=== PATIENT | female | born 1990 | race Caucasian/White ===

== ENCOUNTER 2019-10-21 14:53 | Observation (INO) | payer SELFPAY ==
[2019-10-21] VITALS (39 sets, daily range): BP systolic 99–124; BP diastolic 47–77; PULSE 92–171; RESP 4–35; TEMP 36.4–38.1; O2SAT 91–100
--- NOTE | 2019-10-21 15:00 | DI.RAD_ITS ---
EXAM: XR CHEST 2V PA LATERAL INDICATION: SOB. COMPARISON: ABD FLAT UPRIGHT PA CHEST from 07/12/2013 TECHNIQUE: 2D digital imaging was performed. FINDINGS: Heart size is normal. The lungs are poorly inflated. There is an area of linear atelectasis or scar ring in the right middle lobe. No definite infiltrate is seen. No effusion is present. There is no evidence of pneumothorax. IMPRESSION: Right middle lobe scarring versus atelectasis. Poor pulmonary inflation. DATA REPOSITORY: RADIATION DOSE DELIVERED:
--- NOTE | 2019-10-21 15:09 | ED.GENADUL_ITS ---
Discharge Plan Discharge Details Chief Complaint: SOB Admit Date/Time: 10/21/19 17:39 Admit Provider: Tashi Pinto Attending Provider: Tashi Pinto Primary Care Provider: Bella Jones ED Provider: Angela Mojica Discharge Data Discharge Date/Time-TO BE ENTERED AT DEPARTURE: 10/21/19 18:45 Medical Decision Making <Trina Lira - Last Filed: 10/22/19 15:59> 29-year-old female presents with shortness of breath she reports URI type symptoms for the last week. Does not have a history of asthma. Former smoker states she quit 3 years ago. On initial exam she is tachycardic at 129, and she is unable to speak in full sentences. Lungs to auscultation bilaterally are tight with expiratory wheezes. She also reports some anterior chest pain. Denies any recent long trips, no lower extremity swelling. She has surgical history of hysterectomy. Initial work-up ordered including IV CBC CMP magnesium, EKG, chest x-ray, DuoNeb, and 125 Solu-Medrol. 1527: EKG obtained rate of 118 ND interval is 0 QT/QTc is 304/426 the machine interpretation reports atrial flutter with I and the Dr. Rodriguez disagree with. Appears to be sinus tachycardia no ST depression or elevation no ectopy. 1531: Reevaluation after DuoNeb, increased air movement noted to her left upper and lower lobes there is increased wheezing noted. Her right upper and lower lobes are now clear to auscultation. Patient states that she feels somewhat better. Heart rate up to 150 after neb. Care to be signed out to Ada Mojica MD, discussed patient case and pending D- dimer. Patient c/o nausea. Dr. Mojica verbalizes understanding. ECG Data Prior ECG tracings: not available for review <Angela Mojica MD - Last Filed: 10/21/19 22:57> Yazmin García is a 29-year-old woman with a history of transverse myelitis who presented to the emergency department with cough, shortness of breath, chest tightness signed out to me at time shift change by Trina Lira with d-dimer, reassessment pending. On my assessment, patient is tachycardic 135-165, SBP 120, O2 sat 90 to 92% on room air, patient is well and nontoxic appearing, speaking in full sentences with no apparent respiratory distress. Inspiratory wheeze throughout bilaterally, breath sounds somewhat decreased bilaterally. Patient reports feeling significantly improved after DuoNeb, reports earlier chest pain now resolved. IV fluids just started, patient has received approximately 100 cc. Labs reviewed, anion gap 19, influenza negative, WBC 9.1 unclear etiology of symptoms at this time, concern for viral illness, PE, other. Low suspicion for myocarditis, acute coronary syndrome, early sepsis, however will add troponin, BNP. Given negative chest x-ray, no history of reactive airway disease and unclear etiology of symptoms at this time, plan for CT chest, will continue telemetry, repeat DuoNeb, will monitor and reassess. Patient reports significant improvement in breathing after DuoNeb, reports that she feels essentially at baseline other than feeling generally achy. Denies other symptoms. Troponin negative, BNP within normal. Tachycardia at 150, EKG shows sinus tach, rate variable between 130 and 170, doubt occult atrial flutter. Plan for admission for continued tachycardia of unclear etiology at this time, likely viral respiratory infection, reactive airway disease component, plan for continued evaluation and treatment. Holding antibiotics at this time, patient continues to be very well-appearing without apparent life- threatening bacterial infection. Discussed patient with Dr. Pinto, discussed ICU versus MedSurg telemetry, given patient with blood pressure within normal limits, very well-appearing, no current shortness of breath or respiratory symptoms, lungs clear to auscultation, plan for telemetry at this time. Clinical impression: Shortness of breath, tachycardia Disposition: [facility] inpatient Medical Records Medical records reviewed: Yes I reviewed the patient's medical records. Imaging Data Radiologic Study: Attestation: I personally reviewed and interpreted this imaging study as follows: Radiologist's impression: Exam: XR Chest, 2 Views Exam date and time: 10/21/2019 3:49 PM Age: 29 years old Clinical indication: Other: SOB TECHNIQUE: Imaging protocol: XR of the chest Views: 2 views. COMPARISON: CR ABD FLAT UPRIGHT PA CHEST 07/12/2013 5:12 PM FINDINGS: Lungs: Unremarkable. No consolidation. Pleural space: Unremarkable. No pleural effusion. No pneumothorax. Heart/Mediastinum: Unremarkable. No cardiomegaly. Bones/joints: Unremarkable. IMPRESSION: No acute findings. Exam: CT Angiography Chest With Contrast Exam date and time: 10/21/2019 4:51 PM Age: 29 years old Clinical indication: Shortness of breath; Patient HX: SOB, cough, tachycardia; Additional info: No HX of clots/dvt TECHNIQUE: Imaging protocol: Computed tomographic angiography of the chest with intravenous contrast. 3D rendering: MIP and/or 3D reconstructed images were created by the technologist. Radiation optimization: All CT scans at this facility use at least one of these dose optimization techniques: automated exposure control; mA and/or kV adjustment per patient size (includes targeted exams where dose is matched to clinical indication); or iterative reconstruction. Contrast material: OMNIPAQUE 350; Contrast volume: 80 ml; Contrast route: IV; COMPARISON: CR XR CHEST 2V PA LATERAL 10/21/2019 3:48 PM FINDINGS: Pulmonary arteries: There is no evidence of a pulmonary embolus. Great vessels off aortic arch: There is an aberrant right subclavian artery. Aorta: The aorta is within normal limits. Thyroid: The visualized portions of the thyroid gland are within normal limits. Lungs: The tracheobronchial tree is patent bilaterally. There is an area of focal scarring within the right middle lobe with associated atelectasis. There is slight scarring within the left upper lobe. Pleural space: Unremarkable. No pneumothorax. No pleural effusion. Heart: The heart and pericardium are unremarkable. Gallbladder and bile ducts: The patient is status post cholecystectomy. Lymph nodes: No enlarged lymph nodes. Bones/joints: There are slight degenerative changes of the shoulders. There are degenerative changes of the thoracic spine. Soft tissues: Unremarkable. Other findings: The study is somewhat limited due to bolus timing. The study is somewhat limited due to patient body habitus. The patient's body contacts the CT gantry causing beam hardening artifact. Liver: There is mild fatty infiltration of the liver. IMPRESSION: Limited study as above. Osseous findings as above. No evidence of a pulmonary embolus. Aberrant right subclavian artery. Status post cholecystectomy. Mild fatty infiltration of the liver. Lab Data Lab results reviewed: Yes I reviewed the patient's lab results. Labs: 10/21/19 18:00 Blood Blood Culture - Pending 10/21/19 17:50 Blood Blood Culture - Pending 10/21/19 15:35 Nasopharynx Influenza Types A,B Antigen - Final Laboratory Tests Range/Units 10/21/19 10/21/19 10/21/19 15:25 15:25 15:25 WBC (4.4-10.8) k/cumm 9.10 RBC (4.00-5.20) m/cumm 5.30 H Hgb (12.0-15.5) g/dL 15.5 Hct (36.0-46.0) % 46.3 H MCV (80-95) fL 87.4 MCH (27.0-33.0) pg 29.2 MCHC (32.0-36.0) g/dL 33.5 RDW (11.7-14.6) % 13.3 Plt Count (130-400) x1000/uL 252 MPV (8.0-11.0) fL 11.1 H Immature Gran % % 0.1 Neutrophils % 82.2 Lymphocytes % 8.4 Monocytes % 9.2 Eosinophils % 0.0 Basophils % 0.1 Absolute Neutrophils (1.2-6.7) k/cumm 7.48 H Absolute Lymphocytes (1.2-3.4) k/cumm 0.76 L Absolute Monocytes (0.11-0.7) k/cumm 0.84 H Absolute Eosinophils (0.0-0.7) k/cumm 0.00 Absolute Basophils (0.0-0.2) k/cumm 0.01 ESR D-Dimer (<500) ng/mlFEU 635 H Sodium (136-145) mmol/L 138 Potassium (3.5-5.1) mmol/L 4.1 Chloride (98-107) mmol/L 101 Carbon Dioxide (21.0-32.0) mmol/L 17.5 L Anion Gap (3-11) mmol/L 19.5 H BUN (7-18) mg/dL 8 Creatinine (0.55-1.02) mg/dL 0.70 Estimated GFR/1.73 m2 (mL/min/1.73m2) >= 60.00 Glucose (74-106) mg/dL 90 Calcium (8.5-10.1) mg/dL 9.0 Magnesium (1.8-2.4) mg/dL 2.0 Total Bilirubin (0.2-1.0) mg/dL 0.6 AST (15-37) U/L 75 H ALT (14-59) U/L 108 H Alkaline Phosphatase (46-116) U/L 114 Troponin I (<0.06) ng/Ml NT-Pro-B Natriuret Pep (<300) pg/mL Total Protein (6.4-8.2) g/dL 8.0 Albumin (3.4-5.0) g/dL 4.1 TSH (0.36-3.74) uIU/mL Salicylates (2.8-20.0) mg/dL Range/Units 10/21/19 10/21/19 10/21/19 15:25 15:25 17:50 WBC (4.4-10.8) k/cumm RBC (4.00-5.20) m/cumm Hgb (12.0-15.5) g/dL Hct (36.0-46.0) % MCV (80-95) fL MCH (27.0-33.0) pg MCHC (32.0-36.0) g/dL RDW (11.7-14.6) % Plt Count (130-400) x1000/uL MPV (8.0-11.0) fL Immature Gran % % Neutrophils % Lymphocytes % Monocytes % Eosinophils % Basophils % Absolute Neutrophils (1.2-6.7) k/cumm Absolute Lymphocytes (1.2-3.4) k/cumm Absolute Monocytes (0.11-0.7) k/cumm Absolute Eosinophils (0.0-0.7) k/cumm Absolute Basophils (0.0-0.2) k/cumm ESR D-Dimer (<500) ng/mlFEU Sodium (136-145) mmol/L Potassium (3.5-5.1) mmol/L Chloride (98-107) mmol/L Carbon Dioxide (21.0-32.0) mmol/L Anion Gap (3-11) mmol/L BUN (7-18) mg/dL Creatinine (0.55-1.02) mg/dL Estimated GFR/1.73 m2 (mL/min/1.73m2) Glucose (74-106) mg/dL Calcium (8.5-10.1) mg/dL Magnesium (1.8-2.4) mg/dL Total Bilirubin (0.2-1.0) mg/dL AST (15-37) U/L ALT (14-59) U/L Alkaline Phosphatase (46-116) U/L Troponin I (<0.06) ng/Ml < 0.05 NT-Pro-B Natriuret Pep (<300) pg/mL 143 Total Protein (6.4-8.2) g/dL Albumin (3.4-5.0) g/dL TSH (0.36-3.74) uIU/mL 0.17 L Salicylates (2.8-20.0) mg/dL Range/Units 10/21/19 10/21/19 18:00 18:35 WBC (4.4-10.8) k/cumm RBC (4.00-5.20) m/cumm Hgb (12.0-15.5) g/dL Hct (36.0-46.0) % MCV (80-95) fL MCH (27.0-33.0) pg MCHC (32.0-36.0) g/dL RDW (11.7-14.6) % Plt Count (130-400) x1000/uL MPV (8.0-11.0) fL Immature Gran % % Neutrophils % Lymphocytes % Monocytes % Eosinophils % Basophils % Absolute Neutrophils (1.2-6.7) k/cumm Absolute Lymphocytes (1.2-3.4) k/cumm Absolute Monocytes (0.11-0.7) k/cumm Absolute Eosinophils (0.0-0.7) k/cumm Absolute Basophils (0.0-0.2) k/cumm ESR Cancelled D-Dimer (<500) ng/mlFEU Sodium (136-145) mmol/L Potassium (3.5-5.1) mmol/L Chloride (98-107) mmol/L Carbon Dioxide (21.0-32.0) mmol/L Anion Gap (3-11) mmol/L BUN (7-18) mg/dL Creatinine (0.55-1.02) mg/dL Estimated GFR/1.73 m2 (mL/min/1.73m2) Glucose (74-106) mg/dL Calcium (8.5-10.1) mg/dL Magnesium (1.8-2.4) mg/dL Total Bilirubin (0.2-1.0) mg/dL AST (15-37) U/L ALT (14-59) U/L Alkaline Phosphatase (46-116) U/L Troponin I (<0.06) ng/Ml NT-Pro-B Natriuret Pep (<300) pg/mL Total Protein (6.4-8.2) g/dL Albumin (3.4-5.0) g/dL TSH (0.36-3.74) uIU/mL Salicylates (2.8-20.0) mg/dL 2.8 ECG Data Attestation: I personally reviewed and interpreted this ECG (s) as follows: Interpretation: EKG 15: 15 sinus tachycardia at 118, normal axis, nonspecific ST changes, no STEMI, nondiagnostic EKG Repeat EKG shows sinus tachycardia at 151, normal axis, diffuse mild ST depression, no STEMI, nondiagnostic EKG HPI <Trina Lira - Last Filed: 10/22/19 15:59> General Mode of arrival: ambulatory . Date/Time Provider Initiated Documentation: 10/21/19 15:03 . Limitations to Documentation: no limitations . Information obtained by: patient . HPI Narrative: 29-year-old female presents with shortness of breath she reports URI type symptoms for the last week. Does not have a history of asthma. Former smoker states she quit 3 years ago. On initial exam she is tachycardic at 129, and she is unable to speak in full sentences. Lungs to auscultation bilaterally are tight with expiratory wheezes. She also reports some anterior chest pain. Denies any recent long trips, no lower extremity swelling. She has surgical history of hysterectomy. Related Data Home Medications Medication Instructions Recorded Confirmed Unknown [No Known Home Meds] 10/21/19 10/21/19 Allergies Allergy/AdvReac Type Severity Reaction Status Date / Time No Known Allergies Allergy Unverified 10/21/19 15:40 General Stated Complaint: SOB REA: 3 Review of Systems <Trinapaloma Lira - Last Filed: 10/22/19 15:59> Narrative: Constitutional: Negative for weight loss, alert and oriented, well groomed, normal body habitus, appears uncomfortable. HEENT: Denies trauma, headaches, blurry vision, nasal discharge, sore throat, trouble swallowing. Chest: Denies , palpitations, irregular rhythm, hypertension. Respiratory: Denies hemoptysis. Positive cough and shortness of breath. GI: Denies abdominal pain, nausea, vomiting, diarrhea, constipation. : Denies dysuria, hematuria, flank pain, rectal bleeding. Neuro: Denies dizziness, blurry vision, weakness, syncope, headache or facial numbness. Hematologic: Denies easy bruising, intolerance to heat or cold, hair loss. PFSH <Trina Lira - Last Filed: 10/22/19 15:59> Medical History Biliary colic Endometrioma Placenta percreta Dx during 2nd trimester. 08/04/17 [facility]MINA @ 15w EGA at [facility] [place]. depression Transverse myelitis Surgical History Abdominal hysterectomy (08/04/17) TAHMINA at 15+W EGA for placenta percreta. Ovaries conserved. section Cholecystectomy Endometrioma removed (11/02/14) excision of 3p4p5pm in adipose tissue and attatched to fascia overlying previous transverse fascial incision. Had mesh placed in small fascial defect. Ganglian cyst removal R wrist Pacemaker Tonsillectomy and adenoidectomy Family History Sister Mental disorder Social History Smoking/Tobacco Use Status: Former Tobacco Use Alcohol Intake: current Alcohol Intake frequency: holidays/special occasions only Drug use: Never Details: quit smoking in 2015 Do you feel safe at home: Yes Do you feel safe in your relationship?: Yes Exam <Trina Lira - Last Filed: 10/22/19 15:59> Narrative Exam Narrative: Constitutional: Allert and oriented x3. Appears stated age. Normal body habitus. Head: Normocephalic, no trauma. Eyes: Pupils PERRLA, Red reflex noted, EOM's intact. Eyelids symmetrical withour lesions, discharge, or swelling. ENT: Bilateral TM's WNL, External ear normal to inspection, no mastoid TTP, swelling, or erythema, Nasal turbinates WNL, no nasal discharge. Normal dentition, Posterior pharynx WNL, no exudate. Chest: Tachycardia, Normal S1, S2, distal pulses intact. Resp: On auscultation she has bilateral lower expiratory wheezes. Decreased air movement noted. rales, or rhonchi. Musculoskeletal: Normal gait, 5/5 strength to all four extremities. Skin: No suspicious rashes or lesions. Capillary refill ?2 sec. Neurologic: Cranial nerves II-XII intact. Alert and oriented x 3. DTR's intact. Hematologic/Lymphatic: No ecchymosis, no lymphadenopathy. Course <Trina Lira - Last Filed: 10/22/19 15:59> Vital Signs Vital signs: Vital Signs Temperature 36.4 C L 10/21/19 14:57 Pulse 92 H 10/21/19 14:57 Blood Pressure 99/48 L 10/21/19 14:57 Temperature 36.4 C L 10/21/19 14:57 Temperature Source Temporal Artery Scan 10/21/19 14:57 Pulse 92 H 10/21/19 14:57 Respiratory Rate 26 H 10/21/19 15:04 Respiratory Effort 10/21/19 15:04 Respiratory Depth Shallow 10/21/19 15:04 Respiratory Pattern Tachypnea 10/21/19 15:04 Blood Pressure 99/48 L 10/21/19 14:57 Sign Out <Trina Lira - Last Filed: 10/22/19 15:59> Sign Out Data: Sign Out Comment: Pending repeat Neb and d-dimer Last updated by Trina Lira at 10/21/19 16:06
[2019-10-21] MEDS: Albuterol/Ipratropium 3 ML UPD VIAL UPD ×4 (15:13→19:50)
[2019-10-21 15:38] LABS: Abs Immature Grans 0.01 k/cumm (0.0-0.09); Absolute Basophil Count 0.01 k/cumm (0.0-0.2); Absolute Lymphocyte Count 0.76 k/cumm (1.2-3.4); Absolute Monocyte Count 0.84 k/cumm (0.11-0.7); Absolute Neutrophil Count 7.48 k/cumm (1.2-6.7); Basophils % 0.1; HCT 46.3 % (36.0-46.0); HGB 15.5 g/dL (12.0-15.5); Immature Grans % 0.1 %; Lymphocytes % 8.4; Mean Corp. HGB Concentration 33.5 g/dL (32.0-36.0); Mean Corpuscular Hemoglobin 29.2 pg (27.0-33.0); Mean Corpuscular Volume 87.4 fL (80-95); Mean Platelet Volume 11.1 fL (8.0-11.0); Monocytes % 9.2; Neutrophils % 82.2; Platelet Count 252 x1000/uL (130-400); RBC Distribution Width 13.3 % (11.7-14.6)
[2019-10-21 15:49] LABS: ALT 108 U/L (14-59); AST 75 U/L (15-37); Albumin 4.1 g/dL (3.4-5.0); Alkaline Phosphatase 114 U/L (46-116); Anion Gap 19.5 mmol/L (3-11); BUN 8 mg/dL (7-18); Bilirubin, Total 0.6 mg/dL (0.2-1.0); CO2 17.5 mmol/L (21.0-32.0); Chloride 101 mmol/L (98-107); Glucose 90 mg/dL (74-106); Potassium 4.1 mmol/L (3.5-5.1); Sodium 138 mmol/L (136-145)
[2019-10-21] MEDS: Normal Saline 1,000 ML 1000 ML IV ×3 (15:57→18:40)
[2019-10-21] MEDS: methylPREDNISolone SUCC 125 MG VIAL IVP (15:59)
[2019-10-21] MEDS: Ondansetron 4 MG/2 ML VIAL IVP (16:08)
[2019-10-21 16:19] LABS: D-Dimer 635 ng/mlFEU (<500)
--- NOTE | 2019-10-21 16:32 | DI.VRAD_ITS ---
PROCEDURE INFORMATION: Exam: XR Chest, 2 Views Exam date and time: 10/21/2019 3:49 PM Age: 29 years old Clinical indication: Other: SOB TECHNIQUE: Imaging protocol: XR of the chest Views: 2 views. COMPARISON: CR ABD FLAT UPRIGHT PA CHEST 07/12/2013 5:12 PM FINDINGS: Lungs: Unremarkable. No consolidation. Pleural space: Unremarkable. No pleural effusion. No pneumothorax. Heart/Mediastinum: Unremarkable. No cardiomegaly. Bones/joints: Unremarkable. IMPRESSION: No acute findings. Dictated and Authenticated by: Valentín Simon MD. Ordering:BRAEDEN Mena MD
[2019-10-21 16:33] LABS: Troponin I < 0.05 ng/Ml (<0.06)
[2019-10-21 16:38] LABS: NT-proBNP 143 pg/mL (<300)
[2019-10-21] MEDS: Normal Saline - Diluent 50 ML VIAL IV (16:58)
--- NOTE | 2019-10-21 16:58 | DI.CT_ITS ---
EXAM: CT CHEST PE CTA CLINICAL HISTORY: SOB, cough, tachycardia TECHNIQUE: PE protocol following administration of 80 cc of Omnipaque 350. Axial CT angiography was performed with multi-slice acquisition and multi-planar and/or 3D reconstruc tions. COMPARISON: XR CHEST 2V PA LATERAL from 10/21/2019 FINDINGS: There is no evidence of pulmonary emboli or aortic dissection. No pleural or pericardial effusions are seen. There is a linear area of scarring in the right middle lobe. There is minimal scarring at the left upper lobe. No infiltrate, mass or adenopathy is seen. No rib fracture or pneumothorax is seen. No bony abnormalities are identified. Patient is status post cholecystectomy. The spleen is normal in size. The adrenals and visualized portions of the kidneys and pancreas appear normal. IMPRESSION: Right middle lobe atelectasis. No evidence of pulmonary emboli or other acute abnormality.
[2019-10-21] MEDS: Omnipaque 350 MG/ML 100 ML BTL 80 ML IJ (16:59)
--- NOTE | 2019-10-21 17:12 | DI.VRAD_ITS ---
PROCEDURE INFORMATION: Exam: CT Angiography Chest With Contrast Exam date and time: 10/21/2019 4:51 PM Age: 29 years old Clinical indication: Shortness of breath; Patient HX: SOB, cough, tachycardia; Additional info: No HX of clots/dvt TECHNIQUE: Imaging protocol: Computed tomographic angiography of the chest with intravenous contrast. 3D rendering: MIP and/or 3D reconstructed images were created by the technologist. Radiation optimization: All CT scans at this facility use at least one of these dose optimization techniques: automated exposure control; mA and/or kV adjustment per patient size (includes targeted exams where dose is matched to clinical indication); or iterative reconstruction. Contrast material: OMNIPAQUE 350; Contrast volume: 80 ml; Contrast route: IV; COMPARISON: CR XR CHEST 2V PA LATERAL 10/21/2019 3:48 PM FINDINGS: Pulmonary arteries: There is no evidence of a pulmonary embolus. Great vessels off aortic arch: There is an aberrant right subclavian artery. Aorta: The aorta is within normal limits. Thyroid: The visualized portions of the thyroid gland are within normal limits. Lungs: The tracheobronchial tree is patent bilaterally. There is an area of focal scarring within the right middle lobe with associated atelectasis. There is slight scarring within the left upper lobe. Pleural space: Unremarkable. No pneumothorax. No pleural effusion. Heart: The heart and pericardium are unremarkable. Gallbladder and bile ducts: The patient is status post cholecystectomy. Lymph nodes: No enlarged lymph nodes. Bones/joints: There are slight degenerative changes of the shoulders. There are degenerative changes of the thoracic spine. Soft tissues: Unremarkable. Other findings: The study is somewhat limited due to bolus timing. The study is somewhat limited due to patient body habitus. The patient's body contacts the CT gantry causing beam hardening artifact. Liver: There is mild fatty infiltration of the liver. IMPRESSION: Limited study as above. Osseous findings as above. No evidence of a pulmonary embolus. Aberrant right subclavian artery. Status post cholecystectomy. Mild fatty infiltration of the liver. Dictated and Authenticated by: Valentín Simon MD. Ordering:ARI Miller MD
[2019-10-21] MEDS: Normal Saline Flush 10 ML SYR IVP (17:56)
[2019-10-21 18:29] LABS: Salicylate 2.8 mg/dL (2.8-20.0)
[2019-10-21 18:44] LABS: TSH (W/Ref FT4) 0.17 uIU/mL (0.36-3.74)
--- NOTE | 2019-10-21 18:47 | W.PM.HP.N ---
Date of service: 10/21/19 Time of Service: 18:49 Assessment and Plan Assessment and plan (1) Shortness of breath: Status: Acute Assessment and plan: From the standpoint of probability this is likely infectious and most likely viral as the cause of her presentation. The degree of her symptoms with no significant radiographic findings is atypical, however. No indication on CT angiography of pulmonary embolism. BNP is not elevated and her heart is not enlarged and there are no physical findings that point to decompensated heart failure/cardiomyopathy as a cause. She does not have anemia. She has a modest O2 requirement. It is possible there is a background of reactive airway disease, although no formal diagnosis of this with no PFTs (no medical contact for several years). At this point from a diagnostic standpoint monitor vital signs, SaO2, try to obtain sample for viral PCR, and plan for echocardiogram tomorrow. Therapeutically supportive treatment with scheduled DuoNebs, oxygen, IV fluids. I am not going to continue with steroids absent a stronger indication. She does not have an elevated white count or obvious infiltrate on chest x-ray and I am holding off on empiric antibiotics at this time. (2) Tachycardia: Status: Acute Assessment and plan: Variable rate makes atrial flutter quite unlikely. This appears to be sinus tachycardia, the cause of which remains to be identified. Diagnostics as above. Monitor rhythm on telemetry. IV fluids to continue. Await results of pending thyroid studies. If all unrevealing and tachycardia continues, consider autonomic dysfunction as possible contributor (remote concern of possible MS when she had LP and investigation of possible transverse myelitis showing oligoclonal bands). Hold off on any treatment at this point pending identification of cause but if symptoms more suggestive of thyrotoxicosis develop, consider beta-kvng. (3) Transaminitis: Status: Acute Assessment and plan: Perhaps due to whatever is causing her shortness of breath and tachycardia i.e. viral respiratory infection. CT today did show mild fatty infiltration which might be the cause. Recheck transaminase levels again tomorrow. If continuing to climb consider checking for hepatitis serology. Consider work-up for autoimmune hepatitis. (4) Metabolic acidemia: Status: Acute Assessment and plan: Dehydration contributing some. History does not suggest toxin ingestion. Monitor overall clinical status, IV fluids and recheck electrolytes and anion gap tomorrow. (5) Abnormal TSH: Status: Acute Assessment and plan: Suppressed TSH with pending free T4 and free T3. Tachycardia potentially driven by hyperthyroidism. Tolerating tachycardia fine at this point. If symptoms or signs of decompensation related to tachycardia develop, consider beta-blockade. History of Present Illness History of Present Illness Chief Complaint: Shortness of breath Narrative: 29-year-old former smoker (no cigarettes for 3+ years) presented to the emergency room in respiratory distress. Subacute to acute onset of shortness of breath over the past 24 to 48 hours with associated central chest discomfort described as tight feeling. Painful to cough but not definitely pleuritic pain. Began with some mild URI symptoms yesterday but today much more short of breath with exertion. Comfortable at rest. No fever at home. 10-year-old daughter has had URI symptoms for the past week. No recent travel. Admits that she easily chokes on liquids or solids, as she has all her life but no known structural abnormalities of the upper airway. She has had off and on wheezing for the past year with no formal diagnosis of asthma. She has not seen a medical provider for several years. She has not had diaphoresis, orthopnea, PND, ankle swelling. She has had an intentional weight loss by decreasing carbs. No rashes. No night sweats. No tremor. No vomiting or diarrhea. She is on no medications. She used NyQuil 1 dose yesterday, otherwise no [id number] medications. She has not had any overt bleeding. She is amenorrheic since hysterectomy for acretic placenta (?). There is been no focal weakness. No double vision. Today had some mild dysphonia secondary to cough shortness of breath and chest discomfort but this has not been a persistent problem. In the emergency room on initial presentation she was tachypneic, mildly hypoxic on room air with SaO2 readings in the low 90% range. She improved dramatically with DuoNeb. She also received IV hydration with saline, 2 L and Solu-Medrol. She had a narrow complex tachycardia that has persisted, rates varying from 120s to as high as 170. EKG at the lower rates show distinct P waves. Heart rates have remained elevated despite receiving 2 L of fluid. She did not have an elevated white count and initially was not febrile in the ER but later on spiked a temperature to 38. D-dimer was elevated and CT angiography was performed which did not show pulmonary embolism or infiltrate, no cardiomegaly, no foreign body in the lung. ECG without ischemic changes. Troponin initially negative. BNP within normal range. TSH suppressed with free T4 and T3 pending. Flu swab negative. At the time of my evaluation she feels markedly better, speaks in full sentences, is in no respiratory distress, denies any discomfort in the chest now but continues to have a mild O2 requirement and sinus tachycardia on the monitor. She is being admitted for supportive care and further diagnostic evaluation. Review of Systems All systems reviewed & are unremarkable except as noted in HPI and below Neurologic Comments: No focal weakness numbness or tingling [facility] Medical History Biliary colic Endometrioma Placenta percreta Dx during 2nd trimester. 08/04/17 [facility] [place] 15w [place] [facility] [place] Transverse myelitis Surgical History Abdominal hysterectomy (08/04/17) [facility]AHMINA at 15+W EGA for placenta percreta. Ovaries conserved. section Cholecystectomy Endometrioma removed (11/02/14) excision of [id number] in adipose tissue and attatched to fascia overlying previous transverse fascial incision. Had mesh placed in small fascial defect. Ganglian cyst removal R wrist Pacemaker Tonsillectomy and adenoidectomy Family History Sister Mental disorder Social History Smoking/Tobacco Use Status: Former Tobacco Use Alcohol Intake: current Alcohol Intake frequency: holidays/special occasions only Drug use: Never Details: quit smoking in 2015 Do you feel safe at home: Yes Do you feel safe in your relationship?: Yes Meds Home Medications and Allergies Home Medications Medication Instructions Recorded Confirmed Type Unknown [No Known Home Meds] 10/21/19 10/21/19 History Allergies Allergy/AdvReac Type Severity Reaction Status Date / Time No Known Allergies Allergy Unverified 10/21/19 15:40 Exam Narrative Exam Narrative: Woman appearing a little older than her chronologic age speaking in full sentences, no respiratory distress. No stridor. No retractions. No nasal flaring. No use of accessory muscles of respiration. Initial temperature 36.4, repeat 38.0. Blood pressure has been in the low 100s pulse rate 1 50-1 60 during my time in the room SaO2 on 2 and half liters 93%. Sclera clear. Tonsils surgically absent, no pharyngeal erythema exudates or ulcers. Neck supple. I do not feel any masses or tenderness in the thyroid. No cervical adenopathy. Lungs have good aeration with inspiratory pops and then wheeze mainly in the left lung field most pronounced left lower lung field. A few scattered mid-to-late inspiratory wheezes in the right lung field, anterior lung saenz with some faint expiratory wheezing. Heart rhythm rapid and regular, no S3-S4 or murmur heard. Abdomen mildly obese soft, no tenderness. No masses. Bowel sounds present but diminished. Genital and rectal exams were not performed. Extremities warm with normal pulses at the ankles. No pitting edema. No calf tenderness. Spontaneous symmetric movement of all extremities. No DTRs elicited anywhere. Sits up unassisted with no ataxia. Alert and oriented x4. No facial asymmetry. Speech is clear with no dysphonia or hoarseness. Results Chest x-ray without cardiomegaly or infiltrate or effusion. EKG narrow complex tachycardia, at slower rates P waves visible. Labs Result diagrams: 10/21/19 15:25 10/21/19 15:25 Labs: Laboratory Results - last 24 hr 10/21/19 10/21/19 10/21/19 15:25 15:25 15:25 WBC 9.10 RBC 5.30 H Hgb 15.5 Hct 46.3 H MCV 87.4 MCH 29.2 MCHC 33.5 RDW 13.3 Plt Count 252 MPV 11.1 H Immature Gran % 0.1 Neutrophils % 82.2 Lymphocytes % 8.4 Monocytes % 9.2 Eosinophils % 0.0 Basophils % 0.1 Absolute Neutrophils 7.48 H Absolute Lymphocytes 0.76 L Absolute Monocytes 0.84 H Absolute Eosinophils 0.00 Absolute Basophils 0.01 ESR D-Dimer 635 H Sodium 138 Potassium 4.1 Chloride 101 Carbon Dioxide 17.5 L Anion Gap 19.5 H BUN 8 Creatinine 0.70 Estimated GFR/1.73 m2 >= 60.00 Glucose 90 Calcium 9.0 Magnesium 2.0 Total Bilirubin 0.6 AST 75 H ALT 108 H Alkaline Phosphatase 114 Troponin I NT-Pro-B Natriuret Pep Total Protein 8.0 Albumin 4.1 TSH Salicylates 10/21/19 10/21/19 10/21/19 15:25 15:25 17:50 WBC RBC Hgb Hct MCV MCH MCHC RDW Plt Count MPV Immature Gran % Neutrophils % Lymphocytes % Monocytes % Eosinophils % Basophils % Absolute Neutrophils Absolute Lymphocytes Absolute Monocytes Absolute Eosinophils Absolute Basophils ESR D-Dimer Sodium Potassium Chloride Carbon Dioxide Anion Gap BUN Creatinine Estimated GFR/1.73 m2 Glucose Calcium Magnesium Total Bilirubin AST ALT Alkaline Phosphatase Troponin I < 0.05 NT-Pro-B Natriuret Pep 143 Total Protein Albumin TSH 0.17 L Salicylates 10/21/19 10/21/19 18:00 18:35 WBC RBC Hgb Hct MCV MCH MCHC RDW Plt Count MPV Immature Gran % Neutrophils % Lymphocytes % Monocytes % Eosinophils % Basophils % Absolute Neutrophils Absolute Lymphocytes Absolute Monocytes Absolute Eosinophils Absolute Basophils ESR Cancelled D-Dimer Sodium Potassium Chloride Carbon Dioxide Anion Gap BUN Creatinine Estimated GFR/1.73 m2 Glucose Calcium Magnesium Total Bilirubin AST ALT Alkaline Phosphatase Troponin I NT-Pro-B Natriuret Pep Total Protein Albumin TSH Salicylates 2.8 Last Vital Signs Temp 38.0 C H 10/21/19 18:14 Pulse 158 H 10/21/19 18:14 Resp 26 H 10/21/19 18:14 BP 100/48 L 10/21/19 18:14 Pulse Ox 93 L 10/21/19 18:14
[2019-10-21 19:03] LABS: FREE T4 1.19 ng/dL (0.76-1.46)
--- NOTE | 2019-10-21 19:16 | NUR.NOTE ---
pt received on the unit, tele placed showing sinus tach. vs: 37.7, HR :144, R:28 , spo2 93% utilizing 2L of o2 via cannula and BP:100/62. NS bolus in progress. pt is aware that sputum and urine is needed, containers in the room.
[2019-10-21 19:30] LABS: Troponin I < 0.05 ng/Ml (<0.06)
[2019-10-21 20:05] LABS: Creatine Kinase 31 U/L (26-192)
[2019-10-21 20:06] LABS: *AMPHETAMINES SCREEN URINE Negative (Negative); *BARBITURATES SCREEN URINE Negative (Negative); *BENZODIAZEPINES SCREEN URINE Negative (Negative); Cannabinoids THC Negative (Negative); Cocaine Screen,Urine Negative (Negative); METHADONE URINE SCREEN Negative (Negative); OPIATES URINE SCREEN Negative (Negative)
[2019-10-21 20:07] LABS: Tricyclic Antidepressants Negative (Negative)
[2019-10-21] MEDS: Lactated Ringers 1,000 ML 120 ML IV (20:30)
[2019-10-21] MEDS: Acetaminophen 325 MG TAB 650 MG PO (20:43)
[2019-10-22] VITALS (15 sets, daily range): BP systolic 106–129; BP diastolic 70–87; PULSE 66–114; RESP 1–28; TEMP 36.3–37.4; O2SAT 91–100
[2019-10-22] MEDS: Albuterol/Ipratropium 3 ML UPD VIAL UPD ×3 (03:01→13:31)
[2019-10-22] MEDS: Lactated Ringers 1,000 ML 120 ML IV ×2 (03:18→21:39)
[2019-10-22] MEDS: Acetaminophen 325 MG TAB 650 MG PO ×2 (03:34→11:16)
[2019-10-22 06:51] LABS: HCT 40.1 % (36.0-46.0); HGB 13.5 g/dL (12.0-15.5); Mean Corp. HGB Concentration 33.7 g/dL (32.0-36.0); Mean Corpuscular Hemoglobin 29.5 pg (27.0-33.0); Mean Corpuscular Volume 87.7 fL (80-95); Mean Platelet Volume 10.8 fL (8.0-11.0); Platelet Count 261 x1000/uL (130-400); RBC 4.57 m/cumm (4.00-5.20); RBC Distribution Width 13.5 % (11.7-14.6); White Blood Cell Count 8.01 k/cumm (4.4-10.8)
[2019-10-22 06:57] LABS: ALT 83 U/L (14-59); AST 35 U/L (15-37); Albumin 3.3 g/dL (3.4-5.0); Alkaline Phosphatase 93 U/L (46-116); Anion Gap 13.8 mmol/L (3-11); BUN 5 mg/dL (7-18); Bilirubin, Total 0.3 mg/dL (0.2-1.0); CO2 20.2 mmol/L (21.0-32.0); CREATININE 0.59 mg/dL (0.55-1.02); Calcium 8.6 mg/dL (8.5-10.1); Chloride 110 mmol/L (98-107); Glucose 119 mg/dL (74-106); Potassium 4.2 mmol/L (3.5-5.1); Sodium 144 mmol/L (136-145); Total Protein 6.7 g/dL (6.4-8.2)
--- NOTE | 2019-10-22 09:30 | DI.US_ITS ---
APPROVED REPORT EXAM: Comprehensive 2D, Doppler, and color-flow Echocardiogram Patient Location: In-Patient Room/Bed: 214A Group Underwriter: Mary Miguel RDCS (AE) Indications: SOB, Tachycardia Conclusion Left Ventricle : The left ventricle is normal size. The left ventricular systolic function is normal . There is normal left ventricular wall thickness. There is normal LV segmental wall motion. The le ft ventricular diastolic function is normal. LVEF is 55-59%. Right Ventricle : The right ventricle is normal size. The right ventricular systolic function is norm al. Atria : The left atrium size is normal. The right atrium size is normal. Valves: There are no's hemodynamically significant valvular lesions Great Vessels : The IVC was not visualized. There are no prior echocardiograms available for comparison. Wall motion Left Ventricle The left ventricle is normal size. The left ventricular systolic function is normal. There is normal left ventricular wall thickness. There is normal LV segmental wall motion. The left ventricular diast olic function is normal. LVEF is 55-59%. Right Ventricle The right ventricle is normal size. The right ventricular systolic function is normal. Atria The left atrium size is normal. The right atrium size is normal. Aortic Valve The aortic valve is normal in structure. Aortic valve is trileaflet. There is no aortic valvular sten osis. No aortic regurgitation is present. Mitral Valve The mitral valve is normal in structure. Trace mitral regurgitation. Tricuspid Valve The tricuspid valve is normal in structure. Trace tricuspid regurgitation. Pulmonic Valve The pulmonary valve is normal in structure. There is no pulmonic valvular stenosis. Trace pulmonic re gurgitation. Great Vessels The aortic root is normal in size. The ascending aorta is normal in size. The IVC was not visualized. Pericardium There is no pericardial effusion. 2D Dimensions IVSD d PLAX 0.76 cm F: 0.6-1.0 LV Vol A2C d MOD 77.2 mL LVPW d PLAX 0.82 cm F: 0.6 - 1.0 LV Vol A4C d MOD 71.0 mL LVID d PLAX 4.42 cm F: 3.8 - 5.2 LA vol/ BSA A2C s A-L 17.5 mL/m2 LVDs 2.75 cm F: 2.2 - 3.5 LA vol/ BSA A4C s A-L 14.2 mL/m2 Ao Root d 2.51 cm F: 2.7 - 3.3 LA Vol/ BSA Biplane s A-L 16.1 mL/m2 RA Area A4C 11.11 cm2 LA Area A4C s MOD 11.61 cm2 RA Vol/ BSA A4C s A-L 15.4 mL/m2 LA Area A2C s MOD 13.17 cm2 Ao Asc Diam d 2.72 cm F: 2.3 - 3.1 LV EF A4C MOD 63.1 % LV EF Teichholz 67.4 % LV EF A2C MOD 56.2 % LVEF (Moreno's) 59.76 % F: 54 - 74 LV EF Biplane MOD 59.8 % LV Volume 57.18 mL F: 46 - 106 LV Volume Index 31.24 mL/m2 F: 29 - 61 LV Vol Biplane MOD 74.0 mL FS 37.25 % LV Diastology MV E' medial 0.173 (>0.07 m/s) E/A Ratio 1.9 LV E/e MED 6.00 (<14) MV E Vmax 1.04 (0.4-1.3 m/s) MV E' lateral 0.205 (>0.1 m/s) MV A Vmax 0.55 (0.4-1.3 m/s) LV E/e LAT 5.05 (<14) MV E/A Ratio 1.74 MV E/E' medial 6.03 MV E/E' lateral 5.07 Aortic Valve LVOT Area 2.65 cm2 AoV Area Vmax 2.23 cm2 LVOT Vmax 1.56 m/s AoV Area/ BSA (Vmax) 1.21 cm2/m2 LVOT Mean Jesús. 1.02 m/s MARK Mean Jesús. 2.19 cm2 LVOT Peak Grad 9.8 mmHg MARK Mean Jesús. Index 1.19 cm2/m2 LVOT Mean Grad 4.9 mmHg LVOT VTI 0.276 m LVOT Diam s 1.80 cm (M/F) 1.5-2.5 AoV Vmax 1.86 (0.5-1.3 m/s) Velocity Ratio 0.83 AoV Mean Jesús. 1.23 m/s AoV Peak Grad 13.8 mmHg LVOT SV 73.00 mL AoV Mean Grad 7.0 (<5 mmHg) AoV VTI 0.292 (0.18-0.25 m) AoV Area VTI 2.50 (2.5-4.5 cm2) AoV Area/ BSA (VTI) 1.36 cm/m2 Mitral Valve MV DT 178 (160-240 msec) MV PHT 52 msec MV Area PHT 4.26 cm2 Pulmonary Valve PV Vmax 1.25 (0.5-1.5 m/s) PV Peak Grad 6.3 mmHg PV Mean Grad 3.0 mmHg PV VTI 0.202 m Tricuspid Valve TR Peak Grad 15.4 mmHg TR Vmax 1.97 m/s
--- NOTE | 2019-10-22 09:31 | PHARADMIT ---
Admission Pharmacy Clinical Review SOB, TACHYCARDIA Code Status Full Code Current Weight Wgt-87.9 kg Renally Cleared and Narrow Therapeutic Index Meds CrCl~! 80.58 mL/min Meds-OK QTc Value / Action Taken QTc-441 NA BP Control, Fever BP-128/87 Tmax-36.9C Electrolytes reviewed Na-144 K+4.2 Mag- 2.0 DVT Prophylaxis NONE Opiate Usage / Scheduled Bowel Regimen Ordered No Yes Plt/SCr for Heparin / Enoxaparin Plts- 261 SCr-0.59 INR for Warfarin na H/H stable, WBC/Bands H&H- 13.5/40.1 WBC- 8.01 Antibiotic appropriateness none Cultures and Sensitivities Blood-pending Flu-negative Surgical ABX d/c within 24 hr NA DM control / Insulin Dosing BG-119 Heart Failure (Check EF%) (LESTER's, B-Block, Diuretics) none IV to PO Switch No Home Meds Reviewed Yes Home Meds Not Ordered Vit Comments Much improved after IV steroids
[2019-10-22 10:55] LABS: Procalcitonin < 0.1 ng/mL
--- NOTE | 2019-10-22 13:50 | W.NUTCONSULT ---
Date of service: 10/22/19 Time of Service: 13:50 Nutritional Consult ASSESSMENT: 29 year old female wih metabolic acidemia, transaminitis and tachycardia. Following regular diet with poor intake (25%). Met with Yazmin today and she reports following lower carb diet (has lost 14 lbs in last 8 weeks) and now eating meals as she has been able to chose her own meals. She had completed 100% of lunch today. BMI 35 indicating class 2 obesity. Not at nutritional risk at this time. MONITORING AND EVALUATION: weight, labs and po intake Time Spent in Nutritional Counseling and Treatment: 15 min spent face to face
--- NOTE | 2019-10-22 14:31 | W.PM.PROGNOT ---
Date of Service Date of service: 10/22/19 Time of Service: 14:32 Assessment and Plan Assessment and plan (1) Bronchospasm with bronchitis, acute: Status: Acute Assessment and plan: Much improved, appears to be due to a viral process. I agree with Dr Pinto that, given how the patient sounds today, she does not need systemic steroids, and I would not start her on a LABA/inhaled corticosteroid combo due to tachycardia. For now, will change nebs to scheduled atrovent/prn xopenex. Continue to monitor overnight with plans to discharge home tomorrow. (2) Tachycardia: Status: Acute Assessment and plan: Seems to be associated with beta agonist therapy, though certainly could also be driven by her pulmonary illness. As above - change regimen to prn xopenex/scheduled atrovent and continue to monitor on tele. Continue IVF. (3) Transaminitis: Status: Acute Assessment and plan: ?viral syndrome vs fatty infiltration of the liver. Improved. May still benefit from hepatitis testing - will order. Consider work-up for autoimmune hepatitis if infectious panel is negative. (4) Metabolic acidemia: Status: Acute Assessment and plan: Possible lactic acidosis and respiratory acidosis combined. Dehydration possibly contributing to lactic acidosis. Continue IVF. Clinically, acidemia has resolved. (5) Abnormal TSH: Status: Acute Assessment and plan: Suppressed TSH, free T4 nml and free T3 pending. No obvious evidence of thyroid storm. Will need to be rechecked as outpatient. (6) DVT prophylaxis: Status: Acute Assessment and plan: Not required in an ambulatory 29 year old patient (7) Discharge planning issues: Status: Acute Assessment and plan: Full code Expected to be discharged home tomorrow Subjective Subjective Interval history since last seen: Yazmin feels a little better - less wheezy - but still a little short of breath (better than yesterday), and right now she feels like her heart is racing. It does go up to 150's with nebulilzer treatments. She denies dizziness, reports chest tightness, denies nausea. Exam Narrative Exam Narrative: General: Very pleasant obese female, A&Ox3, mildly tachypneic in bed on room air (very subtle), appears mildly anxious HEENT: EOMI, MMM Heart: RRR, tachycardic Lungs: audible bilateral air entry, diminished, no wheezing Abdomen: soft, nontender, nondistended Extremities: no e/c/c BLE's Objective Objective Clinical Data: Abnormal lab results 10/21/19 10/21/19 10/21/19 Range/Units 15:25 15:25 15:25 RBC 5.30 H (4.00-5.20) m/cumm Hct 46.3 H (36.0-46.0) % MPV 11.1 H (8.0-11.0) fL Absolute Neutrophils 7.48 H (1.2-6.7) k/cumm Absolute Lymphocytes 0.76 L (1.2-3.4) k/cumm Absolute Monocytes 0.84 H (0.11-0.7) k/cumm D-Dimer 635 H (<500) ng/mlFEU Chloride (98-107) mmol/L Carbon Dioxide 17.5 L (21.0-32.0) mmol/L Anion Gap 19.5 H (3-11) mmol/L BUN (7-18) mg/dL Glucose (74-106) mg/dL AST 75 H (15-37) U/L ALT 108 H (14-59) U/L Albumin (3.4-5.0) g/dL TSH (0.36-3.74) uIU/mL 10/21/19 10/22/19 Range/Units 17:50 06:32 RBC (4.00-5.20) m/cumm Hct (36.0-46.0) % MPV (8.0-11.0) fL Absolute Neutrophils (1.2-6.7) k/cumm Absolute Lymphocytes (1.2-3.4) k/cumm Absolute Monocytes (0.11-0.7) k/cumm D-Dimer (<500) ng/mlFEU Chloride 110 H (98-107) mmol/L Carbon Dioxide 20.2 L (21.0-32.0) mmol/L Anion Gap 13.8 H (3-11) mmol/L BUN 5 L (7-18) mg/dL Glucose 119 H (74-106) mg/dL AST (15-37) U/L ALT 83 H (14-59) U/L Albumin 3.3 L (3.4-5.0) g/dL TSH 0.17 L (0.36-3.74) uIU/mL Vital Signs Temperature 36.4 C L 10/22/19 07:40 Temperature Source Tympanic 10/22/19 07:40 Pulse 110 H 10/22/19 13:37 Pulse Rhythm Regular 10/22/19 03:20 Pulse 171 H 10/21/19 17:40 Respiratory Rate 18 10/22/19 13:37 Respiratory Effort 10/22/19 08:27 Respiratory Depth Normal 10/22/19 08:27 Respiratory Pattern Normal 10/22/19 08:27 Blood Pressure 128/87 10/22/19 07:40 Blood Pressure Mean 60 10/21/19 17:30 Pulse Oximetry 94 L 10/22/19 13:48 Oxygen Delivery Method Room Air 10/22/19 13:48 Oxygen Flow Rate 0 10/22/19 13:48 Pain Level 4 10/22/19 11:16 Comment 10/22/19 03:20 Intake & Output 10/21/19 10/22/19 10/22/19 23:59 11:59 23:59 Intake Total 3000 / 3000 816 / 816 Output Total 300 / 300 900 / 1350 450 / 1350 Balance 2700 / 2700 -84 / -534 -450 / -534 Weight 82.554 kg 87.9 kg Intake: IV 3000 / 3000 816 / 816 Output: Urine 300 / 300 900 / 1350 450 / 1350 Other: Urine Color Yellow Yellow Yellow Urine Appearance Clear Clear Clear Urine Odor None None Voiding Methods Toilet Toilet Toilet Laboratory Results WBC 8.01 k/cumm (4.4-10.8) 10/22/19 06:32 RBC 4.57 m/cumm (4.00-5.20) 10/22/19 06:32 Hgb 13.5 g/dL (12.0-15.5) 10/22/19 06:32 Hct 40.1 % (36.0-46.0) 10/22/19 06:32 MCV 87.7 fL (80-95) 10/22/19 06:32 MCH 29.5 pg (27.0-33.0) 10/22/19 06:32 MCHC 33.7 g/dL (32.0-36.0) 10/22/19 06:32 RDW 13.5 % (11.7-14.6) 10/22/19 06:32 Plt Count 261 x1000/uL (130-400) 10/22/19 06:32 MPV 10.8 fL (8.0-11.0) 10/22/19 06:32 Immature Gran % 0.1 % 10/21/19 15:25 Neutrophils % 82.2 10/21/19 15:25 Lymphocytes % 8.4 10/21/19 15:25 Monocytes % 9.2 10/21/19 15:25 Eosinophils % 0.0 10/21/19 15: Basophils % 0.1 10/21/19 15:25 Absolute Neutrophils 7.48 k/cumm (1.2-6.7) H 10/21/19 15:25 Absolute Lymphocytes 0.76 k/cumm (1.2-3.4) L 10/21/19 15:25 Absolute Monocytes 0.84 k/cumm (0.11-0.7) H 10/21/19 15:25 Absolute Eosinophils 0.00 k/cumm (0.0-0.7) 10/21/19 15:25 Absolute Basophils 0.01 k/cumm (0.0-0.2) 10/21/19 15:25 ESR Cancelled 10/21/19 18:35 D-Dimer 635 ng/mlFEU (<500) H 10/21/19 15:25 Sodium 144 mmol/L (136-145) 10/22/19 06:32 Potassium 4.2 mmol/L (3.5-5.1) 10/22/19 06:32 Chloride 110 mmol/L (98-107) H 10/22/19 06:32 Carbon Dioxide 20.2 mmol/L (21.0-32.0) L 10/22/19 06:32 Anion Gap 13.8 mmol/L (3-11) H 10/22/19 06:32 BUN 5 mg/dL (7-18) L 10/22/19 06:32 Creatinine 0.59 mg/dL (0.55-1.02) 10/22/19 06:32 Estimated GFR/1.73 m2 >= 60.00 (mL/min/1.73m2) 10/22/19 06:32 Glucose 119 mg/dL (74-106) H 10/22/19 06:32 Calcium 8.6 mg/dL (8.5-10.1) 10/22/19 06:32 Magnesium 2.0 mg/dL (1.8-2.4) 10/21/19 15:25 Total Bilirubin 0.3 mg/dL (0.2-1.0) 10/22/19 06:32 AST 35 U/L (15-37) 10/22/19 06:32 ALT 83 U/L (14-59) H 10/22/19 06:32 Alkaline Phosphatase 93 U/L (46-116) 10/22/19 06:32 Creatine Kinase 31 U/L (26-192) 10/21/19 17:50 Troponin I < 0.05 ng/Ml (<0.06) 10/21/19 19:05 NT-Pro-B Natriuret Pep 143 pg/mL (<300) 10/21/19 15:25 Total Protein 6.7 g/dL (6.4-8.2) 10/22/19 06:32 Albumin 3.3 g/dL (3.4-5.0) L 10/22/19 06:32 Procalcitonin < 0.1 ng/mL 10/22/19 06:32 TSH 0.17 uIU/mL (0.36-3.74) L 10/21/19 17:50 Free T4 1.19 ng/dL (0.76-1.46) 10/21/19 17:50 Salicylates 2.8 mg/dL (2.8-20.0) 10/21/19 18:00 Urine Opiates Screen Negative (Negative) 10/21/19 19:40 Urine Methadone Screen Negative (Negative) 10/21/19 19:40 Ur Barbiturates Screen Negative (Negative) 10/21/19 19:40 Ur Tricyclics Screen Negative (Negative) 10/21/19 19:40 Ur Amphetamines Screen Negative (Negative) 10/21/19 19:40 U Benzodiazepines Scrn Negative (Negative) 10/21/19 19:40 Urine Cocaine Screen Negative (Negative) 10/21/19 19:40 Ur THC Screen Negative (Negative) 10/21/19 19:40
--- NOTE | 2019-10-22 15:44 | PDOC.CMIN ---
Care Management Initial Assess REASON FOR HOSPITALIZATION:: SOB, Tachycardi PAST MEDICAL HISTORY/PAST SURGICAL HISTORY:: Bilary colic, endometrioma, placenta percerta, depression, transverse myelitis, abdominal hysterectomy, section, cholecystectomy, endometrioma removed, ganglian cyst removal right wrist, pacemaker, tonsillectomy and adenoidectomy PREVIOUS FUNCTIONAL STATUS/SOCIAL/FAMILY SUPPORTS:: Yazmin resides in [facility] with her daughter. Her also resides in [facility] and they reside seperately for resource managment. Yazmin works at [employer] in [facility] [employer]. She is independent in the community at baseline. CURRENT FUNCTIONAL STATUS:: Yazmin is lying in bed when CM meets with her, she is pleasant in interaction and forthcoming with information. ADVANCE DIRECTIVES:: None on file at [facility]. INSURANCE COVERAGE / FINANCIAL ISSUES:: No insurance coverage, financial assistance application provided. CURRENT HOME/COMMUNITY SERVICES/EQUIPMENT:: No current services or equipment. PRIMARY CARE PHYSICIAN:: Bella Jones POTENTIAL DISCHARGE NEEDS:: Follow up appointments with PCP. PATIENT/FAMILY EDUCATION NEEDS:: Review discharge instructions, discuss Ask Me Three. ANTICIPATED BARRIERS TO DISCHARGE:: None identified. TRANSPORTATION:: Via private vehicle with family. PLAN:: Yazmin will return home when ready per MD. No additional services anticipated at this time. CM continues to follow. Yazmin will transport home via private vehicle with family.
[2019-10-22 17:20] LABS: T3,Free 2.6 pg/mL (2.8-5.3)
[2019-10-22] MEDS: Levalbuterol 1.25 MG/3 ML UPD VIAL UPD (19:19)
[2019-10-22] MEDS: Ipratropium 0.5 MG/2.5 ML UPD VIAL UPD (21:39)
[2019-10-23] VITALS (10 sets, daily range): BP systolic 113–129; BP diastolic 72–81; PULSE 87–112; RESP 2–20; TEMP 36.6–36.8; O2SAT 92–97
[2019-10-23] MEDS: Levalbuterol 1.25 MG/3 ML UPD VIAL UPD ×2 (01:22→10:09)
[2019-10-23] MEDS: Sodium Chloride-Nasal SPRAY-ADULT 44 ML BTL NS ×2 (01:32→04:29)
[2019-10-23] MEDS: Ipratropium 0.5 MG/2.5 ML UPD VIAL UPD ×2 (04:29→10:08)
[2019-10-23 07:11] LABS: Abs Immature Grans 0.02 k/cumm (0.0-0.09); Absolute Basophil Count 0.02 k/cumm (0.0-0.2); Absolute Eosinophil Count 0.01 k/cumm (0.0-0.7); Absolute Lymphocyte Count 0.77 k/cumm (1.2-3.4); Absolute Monocyte Count 0.82 k/cumm (0.11-0.7); Absolute Neutrophil Count 5.77 k/cumm (1.2-6.7); Basophils % 0.3; Eosinophils % 0.1; HCT 40.2 % (36.0-46.0); HGB 13.5 g/dL (12.0-15.5); Immature Grans % 0.3 %; Lymphocytes % 10.4; Mean Corp. HGB Concentration 33.6 g/dL (32.0-36.0); Mean Corpuscular Hemoglobin 29.2 pg (27.0-33.0); Mean Corpuscular Volume 86.8 fL (80-95); Monocytes % 11.1; Neutrophils % 77.8; Platelet Count 241 x1000/uL (130-400); RBC 4.63 m/cumm (4.00-5.20); RBC Distribution Width 13.7 % (11.7-14.6); White Blood Cell Count 7.41 k/cumm (4.4-10.8)
[2019-10-23 07:16] LABS: Anion Gap 13.1 mmol/L (3-11); BUN 8 mg/dL (7-18); CO2 23.9 mmol/L (21.0-32.0); CREATININE 0.69 mg/dL (0.55-1.02); Calcium 8.2 mg/dL (8.5-10.1); Chloride 107 mmol/L (98-107); Glucose 89 mg/dL (74-106); Magnesium 1.7 mg/dL (1.8-2.4); Potassium 3.4 mmol/L (3.5-5.1); Sodium 144 mmol/L (136-145)
[2019-10-23] MEDS: Acetaminophen 325 MG TAB 650 MG PO (07:36)
--- NOTE | 2019-10-23 12:00 | W.PM.DS.N ---
Date of service: 10/23/19 Time of Service: 12:00 DS: Diagnosis Discharge Diagnosis (1) Bronchospasm with bronchitis, acute: Status: Acute (2) Asthma: Status: Suspected (3) Tachycardia: Status: Acute (4) Transaminitis: Status: Acute (5) Metabolic acidemia: Status: Resolved (6) Abnormal TSH: Status: Acute (7) Hypokalemia: Status: Acute (8) Hypomagnesemia: Status: Acute Discharge Plan Disposition Patient Disposition: HOME Condition: Improving Discharge Details Chief Complaint: SOB Reason For Visit: SOB,TACHYCARDI Admit Date/Time: 10/21/19 17:39 Admit Provider: Tashi Pinto Attending Provider: Tashi Pinto Primary Care Provider: Bella Jones ED Provider: Angela Mojica Hospital Course Hospital Course: Ms García is a 29 year old female with PMHx of obesity with BMI of 34.6, history of tobacco abuse in remission, but no prior diagnosis of asthma, who was observed on [facility] hospitalist service from 10/21/2019 until 10/23/2019 after presenting in acute respiratory distress with chest tightness and tachycardia, felt to be due to acute bronchospasm in setting of a viral URI/bronchitis. Influenza and PE were ruled out. The patient was treated with one dose of intravenous steroids as well as scheduled and prn bronchodilators, but no antibiotics, with significant clinical response. Her respiratory and metabolic acidoses resolved. She is not requiring oxygen at the time of discharge and feels improved. The tachycardia improved with treatment of her respiratory illness and switching nebulizer treatments from albuterol to xopenex/atrovent. Her Echocardiogram did not reveal any cardiogenic reasons for the tachycardia (her LVEF was 70% with normal wall motion with preserved function of the right side of the heart and normal structure and function of the valves). While hyperthyroidism was considered as cause of her tachycardia because her TSH was 0.17, her FT4 was within normal limits, and the patient did not demonstrate other clinical signs of hyperthyroidism. Her TSH will have to be rechecked as outpatient. The patient has slightly elevated AST/ALT - this is felt to be due to mild fatty infiltration of the liver seen on CT. Viral hepatitis panel is pending. Ms García is being discharged home with a prescription for a nebulizer machine, xopenex nebulizer treatments, and a short burst of prednisone. We are also going to recommend OTC prilosec on a chronic basis in case GERD is triggering her bronchospasm. She is medically stable for discharge home today. Care management is giving her information on community connections to help apply for medical insurance. She is being referred for an outpatient PFT and is asked to follow up with her PCP in 1-2 weeks. Home Meds and New Rx's Prescriptions: New levalbuterol HCl 1.25 mg/3 mL Solution For Nebulization 1.25 mg UPD Q4H PRN PRN (Reason: shortness of breath or wheezing) Qty: 90 RF: 0 prednisone 20 mg tablet 40 mg PO DAILY Qty: 8 RF: 0 Prilosec OTC 20 mg tablet,delayed release (DR/EC) 20 mg PO DAILY Qty: 30 RF: 0 Discharge Instructions Instructions: Prednisone (By mouth), Omeprazole (By mouth), Levalbuterol (By breathing), Asthma (DC), How to Use a Nebulizer (DC), Bronchospasm (DC), Pulmonary Function Tests (DC) Additional Instructions: Finish your steroids (prednisone) as prescribed. Use xopenex nebulizer treatments only as needed. Return to the hospital with any worsening in your breathing, dizziness, chest pain, or shortness of breath. Follow up with your PCP in 1-2 weeks. Abstain from smoke and ask for people not to smoke around you. Care Plan Goals: Community Connections referral Stand Alone Forms: Nursing Discharge Form Referrals: Bella Jones MD [Primary Care Provider] - (Please call PCP on Friday to make a follow up appointment. ) Activity:: Activity as Tolerated Equipment/Supplies:: nebulizer machine Diet:: Normal Diet Discharge Orders Discharge Orders: Discharge Order (Routine); Ordered 10/23/19 Ordered By: Eloise Jamison Other Ambulatory Orders: PFT ([place]/[facility]) (Outpt) (ONCE) Timeframe: [id number] Facility: [facility] - Location: Respiratory Therapy Ordered By: Eloise Jamison DS: Summary Status at Discharge Functional status at discharge: independent ambulation Overall status at discharge: patient is progressing back to baseline Mental Status: mental status grossly normal Speech and Movement: speech and movement normal Mood: congruent mood Affect: normal affect Exam Narrative Exam Narrative: General: Very pleasant obese female, A&Ox3, no respiratory distress noted, calm, seated at the side of the bed, eating lunch HEENT: EOMI, MMM Heart: RRR, tachycardic (less so than yesterday) Lungs: audible bilateral air entry, diminished, no wheezing Abdomen: soft, nontender, nondistended Extremities: no e/c/c BLE's Psych Mental Status: mental status grossly normal Speech and Movement: speech and movement normal Mood: congruent mood Affect: normal affect DS: Data Vitals/I&O Vitals and I&O: Vital Signs Temperature 36.8 C 10/23/19 07:28 Temperature Source Tympanic 10/23/19 07:28 Pulse 99 H 10/23/19 07:28 Pulse Rhythm Regular 10/23/19 11:16 Pulse 171 H 10/21/19 17:40 Respiratory Rate 17 10/23/19 07:28 Respiratory Effort Non-Labored 10/23/19 11:16 Respiratory Depth Normal 10/23/19 11:16 Respiratory Pattern Normal 10/23/19 11:16 Blood Pressure 129/81 10/23/19 07:28 Blood Pressure Mean 60 10/21/19 17:30 Pulse Oximetry 92 L 10/23/19 07:28 Oxygen Delivery Method Room Air 10/23/19 07:28 Oxygen Flow Rate 0 10/23/19 07:28 Pain Level 3 10/23/19 07:36 Comment 10/22/19 03:20 Intake & Output 10/22/19 10/23/19 10/23/19 23:59 11:59 23:59 Intake Total 240 / 6 388 / 388 Output Total 450 / 1350 Balance -210 / 6 388 / 388 Weight 85.899 kg Intake: IV 388 / 388 Oral 240 / 240 Output: Urine 450 / 1350 Other: Urine Color Yellow Yellow Urine Appearance Clear Clear Urine Odor None Comment Patient voding ad tru per patient Voiding Methods Toilet Toilet Data Completed and Pending Completed studies during hospitalization [Text1]: CXR 10/21/2019: Right middle lobe scarring versus atelectasis. Poor pulmonary inflation. CTA chest 10/21/2019: Right middle lobe atelectasis. No evidence of pulmonary emboli or other acute abnormality. Echo 10/22/2019: 1. The left ventricular chamber size is normal. Left ventricular wall thickness is normal. There is normal global left ventricular systolic function. Ejection fraction is estimated to be 70%. There are no left ventricular segmental wall motion abnormalities. 2. The right ventricle is normal in size. Right ventricular global systolic function is normal. The estimated pulmonary artery systolic pressure is 18 mmHg. 3. The cardiac valves appear structurally and functionally normal. Pending studies at discharge: Hepatitis panel. Viral respiratory panel. Labs on day of discharge: Labs from last 24 hours 10/23/19 10/23/19 10/23/19 06:47 06:47 06:47 WBC 7.41 RBC 4.63 Hgb 13.5 Hct 40.2 MCV 86.8 MCH 29.2 MCHC 33.6 RDW 13.7 Plt Count 241 MPV 11.0 Immature Gran % 0.3 Neutrophils % 77.8 Lymphocytes % 10.4 Monocytes % 11.1 Eosinophils % 0.1 Basophils % 0.3 Absolute Neutrophils 5.77 Absolute Lymphocytes 0.77 L Absolute Monocytes 0.82 H Absolute Eosinophils 0.01 Absolute Basophils 0.02 Sodium 144 Potassium 3.4 L Chloride 107 Carbon Dioxide 23.9 Anion Gap 13.1 H BUN 8 Creatinine 0.69 Estimated GFR/1.73 m2 >= 60.00 Glucose 89 Calcium 8.2 L Magnesium 1.7 L Adenovirus DNA Hep Bs Antigen Pending Hep Bs Antibody Pending Hep Bs Antibody, Quant Pending Hep B Core Total Ab Pending Hepatitis C Antibody Pending Human Metapneumovir RNA Parainfluenza 1 (PCR) Parainfluenza 2 (PCR) Parainfluenza 3 (PCR) Parainfluenza 4 (PCR) Resp Viral Spec Desc Rhinovirus (PCR) 10/22/19 18:42 WBC RBC Hgb Hct MCV MCH MCHC RDW Plt Count MPV Immature Gran % Neutrophils % Lymphocytes % Monocytes % Eosinophils % Basophils % Absolute Neutrophils Absolute Lymphocytes Absolute Monocytes Absolute Eosinophils Absolute Basophils Sodium Potassium Chloride Carbon Dioxide Anion Gap BUN Creatinine Estimated GFR/1.73 m2 Glucose Calcium Magnesium Adenovirus DNA Pending Hep Bs Antigen Hep Bs Antibody Hep Bs Antibody, Quant Hep B Core Total Ab Hepatitis C Antibody Human Metapneumovir RNA Pending Parainfluenza 1 (PCR) Pending Parainfluenza 2 (PCR) Pending Parainfluenza 3 (PCR) Pending Parainfluenza 4 (PCR) Pending Resp Viral Spec Desc Pending Rhinovirus (PCR) Pending Preliminary micro results at discharge 10/22/19 16:10 Sputum Culture - Preliminary Sputum Normal Tami 10/21/19 18:00 Blood Culture - Preliminary Blood NO GROWTH 24 HOURS 10/21/19 17:50 Blood Culture - Preliminary Blood NO GROWTH 24 HOURS PFSH Medical History Biliary colic Endometrioma Placenta percreta Dx during 2nd trimester. 08/04/17 TAHMINA @ 15w EGA at [facility] [place]. depression Transverse myelitis Surgical History Abdominal hysterectomy (08/04/17) TAHMINA at 15+W EGA for placenta percreta. Ovaries conserved. section Cholecystectomy Endometrioma removed (11/02/14) excision of [id number] in adipose tissue and attatched to fascia overlying previous transverse fascial incision. Had mesh placed in small fascial defect. Ganglian cyst removal R wrist Pacemaker Tonsillectomy and adenoidectomy Family History Sister Mental disorder Social History Smoking/Tobacco Use Status: Former Tobacco Use Alcohol Intake: current Alcohol Intake frequency: holidays/special occasions only Drug use: Never Details: quit smoking in 2015 Do you feel safe at home: Yes Do you feel safe in your relationship?: Yes
[2019-10-23] MEDS: Magnesium Oxide 400 MG TAB PO (12:43)
[2019-10-23] MEDS: Potassium Chloride 20 MEQ TABCR 40 MEQ PO (12:43)
[2019-10-23] MEDS: Pantoprazole 40 MG TABCR PO (12:44)
[2019-10-23] MEDS: predniSONE 20 MG TAB 40 MG PO (12:44)
--- NOTE | 2019-10-23 18:24 | PDOC.CMDIS ---
- If Service Date Differs Date of service: 10/23/19 Time of Service: 18:24 LACE Index Scoring Tool - Questions: Length of Stay (in days): 2 Acuity (Admit via E.D.?): Yes E.D. Visits: 1 - Answers: Total Score: 6 Risk of Readmission: Low Risk Care Management Discharge Reason for Hospitalization: SOB, Tachycardi Discharge Plan: Yazmin will be discharged home with a nebulizer and orders for a prednisone taper and updraft medication. Yazmin has no insurance and was concerned about the cost of her medications and equipment. She was provided with medication from the hospital pharmacy and given prescriptions and a Good RX coupon for Xopenex to use at her pharmacy ([facility] in [place]. A referral for insurance counseling and equipment coverage was sent to [facility] by [facility].She will follow up with her PCP and discharge plan of care. She will transport via private vehicle with family. Patient/Family Education Needs: Discharge plan, limitations, follow up plan, Ask Me Three and information about community resources to assist with insurance and other needs.
[2019-10-25 10:43] LABS: Adenovirus DNA Result Negative (Negative); Metapneumovirus RNA Result Negative (Negative); Parainfluenza Type1 RNA Result Negative (Negative); Parainfluenza Type2 RNA Result Negative (Negative); Parainfluenza Type3 RNA Result Negative (Negative); Parainfluenza Type4 RNA Result Negative (Negative)
[2019-10-25 11:19] LABS: HBs Antibody, Qual Positive (See Note); HBs Antibody, Quant 42.4 mIU/mL (See Note); Hepatitis B Core Antibody Negative (Negative); Hepatitis B surface Ag Negative (Negative); Hepatitis C Ab w Rflx HCV PCR Negative (Negative)
[2019-10-29 11:32] LABS: Rhinovirus RNA Result Negative (Negative)
== END 2019-10-23 13:52 | disposition home or self-care (01) ==
LOC: ER 18:02 → MS 18:48
PROVIDERS: Registered Nurse Emergency; Admitting Provider Internal Medicine; Emergency Provider Student in an Organized Health Care Education/Training Program; PCP Family Medicine; Visit Provider Internal Medicine
DX: R09.02 Hypoxemia (principal); J20.8 Acute bronchitis due to other specified organisms; J45.909 Unspecified asthma, uncomplicated; R00.0 Tachycardia, unspecified; R74.0 Nonspecific elevation of levels of transaminase and lactic acid dehydrogenase [LDH]; E87.2 Acidosis; R94.6 Abnormal results of thyroid function studies; R79.1 Abnormal coagulation profile; E86.0 Dehydration; E83.42 Hypomagnesemia; E87.6 Hypokalemia; E66.9 Obesity, unspecified; Z87.891 Personal history of nicotine dependence
CPT/HCPCS: 36410; 36415; 71275; 80048; 80053; 80307; 82550; 84145; 85027; 85652; 86704; 86706; 86803; 87040; 87340; 87449; 87632; 93005; 94618; 96361; 96374; 96375; 99217; 99220; 99232; 99285; 71046; 80329; 83735; 83880; 84439; 84443; 84481; 84484; 85025; 85379; 87070; 87205; 93010; 93306; 94640; 99225; 99284; G0378; J2405; J2930; J3490; J7512; J7614; J7620; J7644

== ENCOUNTER 2020-06-13 19:52 | Outpatient (REF) | payer MEDICAID, SELFPAY ==
[2020-06-15 15:20] LABS: Chlamydia Result Negative (Negative); GC Result Negative (Negative)
== END 2020-06-13 20:12 ==
LOC: NCHCN 19:52
PROVIDERS: PCP Family Medicine; Visit Provider Nurse Practitioner Family
DX: Z20.2 Contact with and (suspected) exposure to infections with a predominantly sexual mode of transmission (principal); N89.8 Other specified noninflammatory disorders of vagina; Z11.3 Encounter for screening for infections with a predominantly sexual mode of transmission
CPT/HCPCS: 87491; 87591; 87480; 87510; 87660

== ENCOUNTER 2021-05-25 16:55 | Outpatient (REF) | payer MEDICAID, SELFPAY ==
[2021-05-25 19:54] LABS: TSH (W/Ref FT4) 0.93 uIU/mL (0.36-3.74)
== END 2021-05-25 16:56 | disposition home or self-care (01) ==
LOC: NCHCN 16:55
PROVIDERS: PCP Family Medicine; Visit Provider Nurse Practitioner Family
DX: E23.0 Hypopituitarism (principal)
CPT/HCPCS: 84443

== ENCOUNTER 2022-01-09 01:53 | Emergency (ER) | payer MEDICAID, SELFPAY ==
[2022-01-09 01:57] VITALS: BP 131/75; PULSE 87; RESP 18; TEMP 37.1; O2SAT 98
--- NOTE | 2022-01-09 01:58 | W.ED.GENAD ---
Discharge Plan Disposition Patient Disposition: HOME Condition: Improving Discharge Details Clinical Impression: Complicated UTI (urinary tract infection) Primary Care Provider: Bella Jones ED Provider: Anthony Torres Sparkill Meds and New Rx's Prescriptions: New cefpodoxime 200 mg tablet 200 mg PO BID Qty: 12 0RF Rx Instructions: must administer with a meal/food phenazopyridine [Pyridium] 100 mg tablet 100 mg PO TID Qty: 5 0RF Continued levalbuterol HCl 1.25 mg/3 mL Solution For Nebulization 1.25 mg UPD Q4H PRN PRN (Reason: shortness of breath or wheezing) Qty: 90 0RF Prilosec OTC 20 mg tablet,delayed release (DR/EC) 20 mg PO DAILY Qty: 30 0RF levalbuterol tartrate [Xopenex HFA] 45 mcg/actuation HFA aerosol inhaler 1 - 2 inh IH Q6H PRN PRN (Reason: shortness of breath or wheezing) Qty: 15 0RF Discontinued prednisone 20 mg tablet 40 mg PO DAILY Qty: 8 0RF Discharge Instructions Instructions: Urinary Tract Infection in Women (ED) Additional Instructions: You may take the Pyridium every 8 hours to control your urinary symptoms. Please start the antibiotic this evening. Follow-up with primary care next week for recheck. Return to the ED for fever, worsening pain, vomiting, other concerns. Medical Decision Making Patient presenting with flank pain and gross hematuria as well as UTI type symptoms. She reports having intermittent flank pain for some time. She has had UTIs but denies previous kidney stone. She is status post hysterectomy in the past. IV established and fluids started. Ketorolac IV and Pyridium p.o. given for symptoms. Stone study, CBC, BMP ordered in addition to urinalysis. Patient laboratory studies with normal kidney function. White count is elevated. Urine is packed with red cells. CT scan with no evidence of stone or hydronephrosis. Significant bladder wall thickening consistent with cystitis. Given the flank pain and elevated white count we will treat as pyelonephritis. Looks well and is feeling better so may be managed outpatient. Will dose with ceftriaxone here and continue cefpodoxime as outpatient. Follow-up with primary care at completion of antibiotics for recheck. Return to ED for increasing pain, vomiting, fever, other concerns Lab Data Lab results reviewed: Yes I reviewed the patient's lab results. HPI General Mode of arrival: ambulatory. Date/Time Provider Initiated Documentation: 01/09/22 01:57. Limitations to Documentation: no limitations. Information obtained by: patient and RN notes reviewed. HPI Narrative: Patient presents to ED with complaint of dysuria, frequency, grossly bloody urine. Patient reports history of UTI. She has had intermittent right flank pain for some time. She had UTI symptoms last week but they resolve. Began to have UTI symptoms again yesterday and then woke up this inspector wreath with gross hematuria, clots, dysuria and frequency. She denies any fever. She denies abdominal pain, vomiting. She has had some diarrhea. She is status post hysterectomy in the past. Related Data Home Medications Medication Instructions Recorded Confirmed levalbuterol HCl 1.25 mg/3 mL 1.25 mg (3 mL) UPD Q4H PRN PRN #90 10/23/19 solution for nebulization ml levalbuterol tartrate 45 1 - 2 inh IH Q6H PRN PRN #15 gm 10/23/19 mcg/actuation aerosol inhaler (Xopenex HFA) omeprazole magnesium 20 mg 20 mg PO DAILY #30 tab 10/23/19 tablet,delayed release (Prilosec OTC) cefpodoxime 200 mg tablet 200 mg PO BID #12 tab 01/09/22 phenazopyridine 100 mg tablet 100 mg PO TID #5 tab 01/09/22 (Pyridium) Previous Rx's Medication Instructions Recorded levalbuterol HCl 1.25 mg/3 mL 1.25 mg (3 mL) UPD Q4H PRN PRN #90 10/23/19 solution for nebulization ml levalbuterol tartrate 45 1 - 2 inh IH Q6H PRN PRN #15 gm 10/23/19 mcg/actuation aerosol inhaler (Xopenex HFA) omeprazole magnesium 20 mg 20 mg PO DAILY #30 tab 10/23/19 tablet,delayed release (Prilosec OTC) cefpodoxime 200 mg tablet 200 mg PO BID #12 tab 01/09/22 phenazopyridine 100 mg tablet 100 mg PO TID #5 tab 01/09/22 (Pyridium) Allergies Allergy/AdvReac Type Severity Reaction Status Date / Time No Known Allergies Allergy Unverified 01/09/22 02:02 General REA: 3 Review of Systems Narrative: As documented in HPI otherwise negative as below. Const: no fever, chills, weakness Resp: no cough, SOB, pleuritic pain CV: no CP, diaphoresis, edema, syncope GI: no abdominal pain, nausea, vomiting Neuro: no headache, numbness, focal weakness, confusion PFSH All Active Problems (Updated 01/09/22 @ 03:04 by Anthony Torres MD) Complicated UTI (urinary tract infection) (Acute) Hypomagnesemia (Acute) Hypokalemia (Acute) Discharge planning issues (Acute) DVT prophylaxis (Acute) Bronchospasm with bronchitis, acute (Acute) Abnormal TSH (Acute) Transaminitis (Acute) Tachycardia (Acute) Shortness of breath (Acute) Medical History Endometrioma Placenta percreta Dx during 2nd trimester. 08/04/17 [facility] @ 15w [place] at [facility] [place] Transverse myelitis Surgical History Abdominal hysterectomy (08/04/17) [facility] at 15+W EGA for placenta percreta. Ovaries conserved. section Cholecystectomy Endometrioma removed (11/02/14) excision of [id number] in adipose tissue and attatched to fascia overlying previous transverse fascial incision. Had mesh placed in small fascial defect. Ganglian cyst removal R wrist Pacemaker Tonsillectomy and adenoidectomy Family History Sister Mental disorder Social History Smoking/Tobacco Use Status: Former Tobacco Use Smoking risk assessment performed?: Yes Alcohol Intake: current Alcohol Intake frequency: holidays/special occasions only Drug use: Never Details: quit smoking in 2016 Do you feel safe at home: Yes Do you feel safe in your relationship?: Yes Exam Narrative Exam Narrative: Const: WDWN female in NAD. HEENT: NC/AT. Normal facial exam. Eyes: Normal conjunctiva and sclera. Neck: Supple. Trachea midline. Lungs: Normal respiratory effort. Lungs are clear. Cor: RRR without murmur/gallop. Good radial pulses. GI: Soft. NT/ND. No guarding or rebound. Back: Mild right CVAT. Neuro: A+O x 3. Normal speech, mentation, gait. Cranial nerves II - XII grossly intact. No gross motor or sensory deficit. Ext: No C/C/E. Skin: Warm and dry without rash.
--- NOTE | 2022-01-09 02:00 | DI.CT_ITS ---
Exam(s) CT RENAL COLIC WO EXAM: CT RENAL COLIC WO CLINICAL HISTORY: right flank pain w/ gross hematuria. TECHNIQUE: Imaging Protocol: Axial computed tomography images with coronal and sagittal reformatted images were created and reviewed. CONTRAST MATERIAL: Noncontrast COMPARISON: MR MRI - PELVIS WO CONTRAST from 07/30/[address] CHEST PE CTA from 10/21/2019 FINDINGS: ABDOMEN: Lung Bases: Normal where visualized. Liver: Normal attenuation. No measurable mass. Gallbladder and biliary tract: No radiodense calculus or dilation. Pancreas: Normal density, no calcifications or inflammatory process. Spleen: Normal. Kidneys: Normal size, contour and axis. No radiodense stones or obstructive uropathy. No masses seen. Adrenal glands: No masses seen. Abdominal Aorta: Abdominal portion non-dilated. PELVIS: Bladder: Mildly distended. Severe blood diffuse bladder wall thickening. No visible stone or mass. Bowel: No obstruction or bowel wall thickening. Peritoneal cavity: No ascites, collection or mesenteric inflammatory response. Reproductive: Status post hysterectomy. Small right adnexal cyst. Left adnexal cyst 7.3 cm maximal dimension. Bones: Within normal limits. IMPRESSION: Severe diffuse bladder wall thickening. No visible mass or calcification. No evidence of renal calc pilar, ureteral calculi or hydronephrosis. Bilateral adnexal cysts, large on the left, 7 cm. Follow-up recommended. RADIATION DOSE DELIVERED: 783.27mGy.cm Total DLP DATA REPOSITORY: All CT scans at this facility are submitted to the National Radiology Data Registry (NRDR) Dose Index Registry (DIR) with the [employer] (A[employer]). RADIATION OPTIMIZATION: All CT scans at this facility use at least one of these dose optimization te chniques: automated exposure control; mA and/or kV adjustment per patient size (includes targeted exa ms where dose is matched to clinical indication); or iterative reconstruction.
[2022-01-09 02:19] LABS: Abs Immature Grans 0.06 10^3/uL (0.0-0.06); Absolute Lymphocyte Count 2.29 10^3/uL (1.2-3.4); Basophils % 0.2; Eosinophils % 0.7; HCT 42.6 % (36.0-46.0); HGB 13.8 g/dL (11.2-15.7); Immature Grans % 0.4; Lymphocytes % 13.8; MCH 29.8 pg (27.0-33.0); MCHC 32.4 % (32.0-36.0); MCV 92 fL (80-95); MPV 10.3 fL (8.0-11.0); Monocytes % 5.4; Neutrophils % 79.5; Platelet Count 331 10^3/uL (130-400); RBC 4.63 10^6/uL (3.93-5.22); RDW 12.9 % (11.7-14.6); RDW-SD 43.8 fL
[2022-01-09] MEDS: Ketorolac 15 MG/ML VIAL IVP (02:19)
[2022-01-09] MEDS: Lactated Ringers 1,000 ML 1000 ML IV (02:19)
[2022-01-09] MEDS: Phenazopyridine 100 MG TAB PO (02:19)
[2022-01-09 02:20] LABS: Absolute Basophil Count 0.03 10^3/uL (0.0-0.2); Absolute Eosinophil Count 0.12 10^3/uL (0.0-0.7)
[2022-01-09 02:27] LABS: Anion Gap 7.6 mmol/L (3-11); BUN 15 mg/dL (7-18); CO2 27.4 mmol/L (21.0-32.0); CREATININE 0.8 mg/dL (0.55-1.02); Calcium 8.3 mg/dL (8.5-10.1); Chloride 105 mmol/L (98-107); Glucose 99 mg/dL (74-106); Potassium 3.9 mmol/L (3.5-5.1); Sodium 140 mmol/L (136-145)
[2022-01-09 02:27] LABS: Bilirubin Negative (Negative); Blood Moderate (Negative); Clarity Cloudy (Clear); Glucose Negative (Negative); Ketones Negative (Negative); Leukocyte Esterase Negative (Negative); Nitrite Negative (Negative); Urobilinogen 0.2 EU/dL (Up TO 0.2)
[2022-01-09 02:32] LABS: Specific Gravity 1.025 (1.005-1.025)
[2022-01-09 02:33] LABS: C & S Indicated? Yes; RBC >50 HPF (0-2)
--- NOTE | 2022-01-09 02:53 | DI.VRAD_ITS ---
PROCEDURE INFORMATION: Exam: CT Abdomen And Pelvis Without Contrast Exam date and time: 01/09/2022 2:27 AM Age: 31 years old Clinical indication: Prior surgery; Surgery date: 6+ months; Surgery type: Hysterectomy, cholecystectomy, , endometrioma removed; Patient HX: R flank pain with gross hematuria TECHNIQUE: Imaging protocol: Computed tomography of the abdomen and pelvis without contrast. Radiation optimization: All CT scans at this facility use at least one of these dose optimization techniques: automated exposure control; mA and/or kV adjustment per patient size (includes targeted exams where dose is matched to clinical indication); or iterative reconstruction. COMPARISON: MRI - PELVIS WO CONTRAST 07/30/2017 12:23 PM FINDINGS: Liver: Normal. No mass. Gallbladder and bile ducts: Prior cholecystectomy. No ductal dilation. Pancreas: Normal. No ductal dilation. Spleen: Normal. No splenomegaly. Adrenal glands: Normal. No mass. Kidneys and ureters: No hydronephrosis. Stomach and bowel: No obstruction. No mucosal thickening. Appendix: No evidence of appendicitis. Intraperitoneal space: Unremarkable. No free air. No significant fluid collection. Vasculature: Unremarkable. No abdominal aortic aneurysm. Lymph nodes: Unremarkable. No enlarged lymph nodes. Urinary bladder: Partially decompressed with moderate to severe wall thickening Reproductive: Surgical clips in the pelvis. Cystic structures presumably adnexal in origin measuring up to 7.3 cm on the left and 2.2 cm on the right. Presumed prior hysterectomy Bones/joints: Unremarkable. No acute fracture. Soft tissues: Unremarkable. IMPRESSION: Moderate to severe bladder wall thickening/cystitis. Clinical correlation recommended. Follow-up cystoscopy as clinically indicated No CT evidence for obstructive uropathy Cystic areas in the ovaries greater on the left measuring up to 7.3 cm. Follow-up gynecology consultation may be helpful for further evaluation Dictated and Authenticated by: Wero Montano MD. Ordering:CRISTINA Cruz MD
[2022-01-09] MEDS: cefTRIAXone 1 GM/50 ML BAG IVPB (03:08)
[2022-01-09 03:32] VITALS: BP 120/73; PULSE 74; RESP 18; O2SAT 100
== END 2022-01-09 03:39 | disposition home or self-care (01) ==
PROVIDERS: Emergency Provider Emergency Medicine; PCP Nurse Practitioner Family
DX: N39.0 Urinary tract infection, site not specified (principal); B96.20 Unspecified Escherichia coli [E. coli] as the cause of diseases classified elsewhere
CPT/HCPCS: 36415; 80048; 87077; 96361; 96365; 96375; 99284; 74176; 81003; 81015; 85025; 87086; 87186; J0696; J1885

== ENCOUNTER 2022-04-10 21:22 | Outpatient (REF) | payer MEDICAID, SELFPAY ==
[2022-04-12 15:08] LABS: Chlamydia Result Negative (Negative); GC Result Negative (Negative)
== END 2022-04-10 21:23 | disposition home or self-care (01) ==
LOC: LBN 21:22
PROVIDERS: PCP Nurse Practitioner Family; Visit Provider Physician Assistant Medical
DX: N89.8 Other specified noninflammatory disorders of vagina (principal)
CPT/HCPCS: 87491; 87591; 87070; 87480; 87510; 87660

== ENCOUNTER 2022-09-11 11:40 | Outpatient (REF) | payer MEDICAID, SELFPAY ==
[2022-09-11 12:21] LABS: Abs Immature Grans 0.02 10^3/uL (0.0-0.06); Absolute Basophil Count 0.04 10^3/uL (0.0-0.2); Absolute Eosinophil Count 0.03 10^3/uL (0.0-0.7); Absolute Lymphocyte Count 1.67 10^3/uL (1.2-3.4); Absolute Neutrophil Count 7.11 10^3/uL (1.2-6.7); Basophils % 0.4; Eosinophils % 0.3; HCT 43.6 % (36.0-46.0); HGB 14.3 g/dL (11.2-15.7); Immature Grans % 0.2; Lymphocytes % 17.6; MCH 29.9 pg (27.0-33.0); MCHC 32.8 % (32.0-36.0); MCV 91 fL (80-95); MPV 10.8 fL (8.0-11.0); Monocytes % 6.3; Neutrophils % 75.2; Platelet Count 278 10^3/uL (130-400); RBC 4.78 10^6/uL (3.93-5.22); RDW 11.9 % (11.7-14.6); RDW-SD 39.9 fL; WBC 9.47 10^3/uL (4.4-10.8)
[2022-09-11 13:09] LABS: Anion Gap 5.9 mmol/L (3-11); BUN 16 mg/dL (7-18); CO2 28.1 mmol/L (21.0-32.0); CREATININE 0.8 mg/dL (0.55-1.02); Calcium 8.8 mg/dL (8.5-10.1); Chloride 105 mmol/L (98-107); Estimated GFR 99.09 (mL/min/1.73m2); Glucose 96 mg/dL (74-106); Sodium 139 mmol/L (136-145); Troponin I < 50 ng/L (<or=60)
== END 2022-09-11 11:41 | disposition home or self-care (01) ==
LOC: LBN 11:40
PROVIDERS: PCP Nurse Practitioner Family; Visit Provider Physician Assistant Medical
DX: R07.9 Chest pain, unspecified (principal); R00.2 Palpitations
CPT/HCPCS: 80048; 84484; 85025

== ENCOUNTER 2022-10-03 14:44 | Outpatient (RCR) | payer MEDICAID, SELFPAY ==
--- NOTE | 2022-10-03 14:45 | HOLTER_ITS ---
APPROVED REPORT Conclusion This is a 48-hour Holter monitor ordered for palpitations Rhythm throughout was sinus with an average heart rate of 68. Minimum was 52, maximum 96 A total of 10 isolated premature ventricular contractions occurred. There were 4 isolated premature atrial contractions There was no atrial fibrillation, no high-grade AV block, no pauses greater than 3 seconds Symptoms of chest pain were reported. There was no associated dysrhythmia
== END 2022-10-29 23:59 | disposition home or self-care (01) ==
LOC: CARDOPNVT 14:44
PROVIDERS: PCP Nurse Practitioner Family; Visit Provider Physician Assistant Medical
DX: R00.2 Palpitations (principal); R07.9 Chest pain, unspecified; I49.3 Ventricular premature depolarization; I49.1 Atrial premature depolarization
CPT/HCPCS: 93225; 93226

== ENCOUNTER 2024-01-06 19:25 | Outpatient (CLI) | payer SELFPAY ==
[2024-01-06 16:20] LABS: Abs Immature Grans 0.03 10^3/uL (0.0-0.06); Absolute Eosinophil Count 0.09 10^3/uL (0.0-0.7); Absolute Lymphocyte Count 2.12 10^3/uL (1.2-3.4); Absolute Monocyte Count 0.62 10^3/uL (0.1-0.8); Absolute Neutrophil Count 8.73 10^3/uL (1.2-6.7); Basophils % 0.3 %; Eosinophils % 0.8 %; HCT 42.6 % (36.0-46.0); HGB 14.5 g/dL (11.2-15.7); Immature Grans % 0.3 %; Lymphocytes % 18.2 %; MCH 29.5 pg (27.0-33.0); MCV 87 fL (80-95); MPV 10.6 fL (8.0-11.0); Monocytes % 5.3 %; Neutrophils % 75.1 %; Platelet Count 315 10^3/uL (130-400); RBC 4.91 10^6/uL (3.93-5.22); RDW 12.5 % (11.7-14.6); RDW-SD 39.8 fL; WBC 11.63 10^3/uL (4.4-10.8)
[2024-01-06 16:23] LABS: Absolute Basophil Count 0.03 10^3/uL (0.0-0.2)
[2024-01-06 16:48] LABS: Hemoglobin A1C 5.4 % (<5.7)
[2024-01-06 17:31] LABS: Vitamin D 25 Total 11.7 ng/mL (30-100)
[2024-01-06 17:35] LABS: ALT 27 U/L (14-59); AST 14 U/L (15-37); Albumin 3.9 g/dL (3.4-5.0); Alkaline Phosphatase 84 U/L (46-116); Anion Gap 12.2 mmol/L (3-11); BUN 9 mg/dL (7-18); Bilirubin, Total 0.2 mg/dL (0.2-1.0); CO2 24.8 mmol/L (21.0-32.0); CREATININE 0.8 mg/dL (0.55-1.02); Calcium 8.9 mg/dL (8.5-10.1); Calculated LDL 101 mg/dL (<100); Chloride 105 mmol/L (98-107); Cholesterol 173 mg/dL (<200); Estimated GFR 98.48 (mL/min/1.73m2); Glucose 86 mg/dL (74-106); HDL Cholesterol 54 mg/dL (40-60); Sodium 142 mmol/L (136-145); TSH (W/Ref FT4) 1.02 uIU/mL (0.36-3.74); Total Protein 6.9 g/dL (6.4-8.2); Triglyceride 93 mg/dL (<150); Vitamin B12 935 pg/mL (193-986)
== END 2024-01-06 19:26 | disposition home or self-care (01) ==
LOC: LBO 19:28
PROVIDERS: Visit Provider Nurse Practitioner Family
DX: Z00.00 Encounter for general adult medical examination without abnormal findings (principal); I10 Essential (primary) hypertension; E78.5 Hyperlipidemia, unspecified; D51.3 Other dietary vitamin B12 deficiency anemia; E55.9 Vitamin D deficiency, unspecified
CPT/HCPCS: 36415; 80053; 80061; 82306; 82607; 83036; 84443; 85025